=== PATIENT | male | born 1965 | race Caucasian/White ===

== ENCOUNTER 2016-09-25 01:42 | Emergency (ER) | payer OTHER ==
[~2016-09-25 01:42] MED LIST: ASPIRIN CHEWABL81 MG PO; CARDIZEM CD120 MG PO; CARDIZEM120 MG PO; CLARITIN 10MG T10 MG PO; COMBIVENT0.074 GM/I INH; CORDARONE 200M200 MG PO; FENOFIBRATE160 MG PO; FINASTERIDE5 MG PO; FLOMAX 0.4 MG0.4 MG PO; GLUCOPHAGE1000 MG PO; IBUPROFEN800 MG PO; IMDUR ER TAB 3030 MG PO; LASIX20 MG PO; LIPITOR TAB 2020 MG PO; LOPRESSOR50 MG PO; LORTAB 10-3251 EACH PO; LORTAB 5-325 M1 EACH PO; NEURONTIN 100100 MG PO; NITROGLYCERIN0.4 MG SL; NITROGLYCERIN4.9 GM PO; PLAVIX 75 MG TA75 MG PO; PRINIVIL5 MG PO; PROVENTIL HFA 61 INH INH; TRIAMTERENE-HC1 EACH PO; VENTOLIN/PROVE0.5 ML INH; VICTOZA 1818 MG/3 ML SC; VICTOZA 3-0.6 MG/0.1 SQ
[2016-09-25 02:58] LABS: HEMOGLOBIN 14.4 gm/dl (14.0-17.5); RED BLOOD COUNT 5.11 M/UL (4.20-5.50); WHITE BLOOD COUNT 9.3 K/UL (4.5-11.0)
== END 2016-09-25 07:08 | disposition home or self-care (01) ==
LOC: ER1 01:42
PROVIDERS: Family Medicine
DX: I48.91 Unspecified atrial fibrillation (principal); N28.9 Disorder of kidney and ureter, unspecified; E11.65 Type 2 diabetes mellitus with hyperglycemia; Z95.1 Presence of aortocoronary bypass graft; Z79.02 Long term (current) use of antithrombotics/antiplatelets; Z79.82 Long term (current) use of aspirin; Z79.899 Other long term (current) drug therapy
CPT/HCPCS: 71010; 80053; 82550; 82553; 83874; 84484; 85025; 93005; 96361; 96374; 99285; J7030